=== PATIENT | male | born 1965 | race Hispanic/Latino ===

== ENCOUNTER 2022-02-11 17:30 | Outpatient (CLI) | payer BC | END 2022-02-11 17:31 | disposition home or self-care (01) | LOC: SLEEPLAB 17:30 | PROVIDERS: ATTEND Family Medicine | DX: G47.33 Obstructive sleep apnea (adult) (pediatric) (principal); I25.10 Atherosclerotic heart disease of native coronary artery without angina pectoris; F32.9 Major depressive disorder, single episode, unspecified; R06.83 Snoring; I10 Essential (primary) hypertension; R53.83 Other fatigue; G47.00 Insomnia, unspecified; E66.9 Obesity, unspecified; Z68.36 Body mass index [BMI] 36.0-36.9, adult | CPT/HCPCS: 95800 ==

== ENCOUNTER 2024-05-18 14:32 | Outpatient (CLI) | payer BC | END 2024-05-18 14:33 | disposition home or self-care (01) | LOC: SCSRAD 14:32 | PROVIDERS: ATTEND Family Medicine | DX: Z01.818 Encounter for other preprocedural examination (principal) | CPT/HCPCS: 71046 ==

== ENCOUNTER 2025-05-21 15:30 | Outpatient (CLI) | payer BC | END 2025-05-21 15:31 | disposition home or self-care (01) | LOC: SCSRAD 15:30 | PROVIDERS: ATTEND Family Medicine | DX: M25.532 Pain in left wrist (principal); Z98.890 Other specified postprocedural states ==